=== PATIENT | male | born 1955 | race African-American/Black ===

== ENCOUNTER 2018-07-27 01:55 | Emergency (ER) | payer OTHER ==
[~2018-07-27] VITALS: Ht 175.3 cm; Wt 103.9 kg
[2018-07-27] MEDS ORDERED: PRINIVIL20 MG PO (02:11)
[2018-07-27] MEDS ORDERED: NORVASC10 MG PO (02:11)
[2018-07-27] MEDS ORDERED: FLEXERIL PO (03:57)
[2018-07-27] MEDS ORDERED: NAPROSYN500 MG PO (03:57)
== END 2018-07-27 04:22 | disposition home or self-care (01) ==
LOC: ER 01:55
DX: S39.012A Strain of muscle, fascia and tendon of lower back, initial encounter (principal); S16.1XXA Strain of muscle, fascia and tendon at neck level, initial encounter; S40.011A Contusion of right shoulder, initial encounter; S00.01XA Abrasion of scalp, initial encounter; V89.2XXA Person injured in unspecified motor-vehicle accident, traffic, initial encounter; Y93.89 Activity, other specified; Y92.89 Other specified places as the place of occurrence of the external cause; Y99.8 Other external cause status